=== PATIENT | female | born 1975 | race Caucasian/White ===

== ENCOUNTER 2021-11-30 11:32 | Outpatient (CLI) | payer OTHER | END 2021-11-30 11:41 | disposition home or self-care (01) | LOC: SONOGRAMA 11:32 | PROVIDERS: ATTEND Pathology Anatomic Pathology & Clinical Pathology | DX: E04.1 Nontoxic single thyroid nodule (principal) ==

== ENCOUNTER 2025-04-05 14:55 | Outpatient (CLI) | payer OTHER | END 2025-04-05 14:59 | disposition home or self-care (01) | LOC: SONOGRAMA 14:55 | PROVIDERS: ATTEND Pathology Anatomic Pathology & Clinical Pathology | DX: D34 Benign neoplasm of thyroid gland (principal); D44.0 Neoplasm of uncertain behavior of thyroid gland; E07.89 Other specified disorders of thyroid; E06.3 Autoimmune thyroiditis; E04.2 Nontoxic multinodular goiter ==